=== PATIENT | female | born 1960 | race Caucasian/White ===

== ENCOUNTER → 2016-03-30 | Outpatient (CLI) | payer BC ==
[~2016-03-30] MED LIST: CLON0.5T3 PO; GABA-113 PO; HYDR-3419 PO; MULT-506 PO; POLYSOL OPB; TOPI25TA55 PO
--- NOTE | 2016-03-30 09:41 | DIAGNOSTIC IMAGING REPORT ---
CT OF THE SINUSES WITHOUT CONTRAST FUSION PROTOCOL CLINICAL HISTORY: Chronic sinusitis. Headache. Facial pain. COMPARISON STUDY: MRI of the brain February 03, 2016. TECHNIQUE: Axial images of the sinuses were obtained without IV contrast according to Fusion protocol. Sagittal and coronal reconstructions were viewed. FINDINGS: Visualized portions of the intracranial contents are unremarkable on this unenhanced examination. Orbits are unremarkable. Mastoid air cells are clear. There is no fluid within the middle ears. The ossicles are intact. Postsurgical findings are noted within the maxillary and ethmoid sinuses. There is leftward deviation of the nasal septum. There is a cortical bullosa of the right middle turbinate. Cribriform plate is intact. Near complete opacification of the left maxillary sinus is similar to MRI of February 03, 2016. There has been interval development of a moderate-sized air-fluid level which contains bubbly secretions within the right maxillary sinus since prior MRI. Moderate mucosal thickening of the ethmoid sinuses is noted with mild mucosal thickening of the frontal and sphenoid sinuses. The right frontoethmoidal recess is occluded by mucosal thickening. The sphenoethmoidal sinuses are patent. The drainage pathway for the right maxillary sinus is narrowed but patent. No bony destruction is present. No mass is identified within the nasal cavity or the sinuses. IMPRESSION: 1. Interval development of a right maxillary sinus air-fluid level since MRI of February 03, 2016. The appearance raises the possibility of acute sinusitis. 2. No change in near complete opacification of the left maxillary sinus since prior MRI. Moderate mucosal thickening of the ethmoid sinuses. 3. Postsurgical findings within the ethmoid and maxillary sinuses. 4. Hanna bullosa of the right middle turbinate. Electronically signed by: Aydin Jarrett M.D. 03/30/2016 9:40 AM Dictated Date/Time: 03/30/2016 9:30 AM
== END | disposition home or self-care (01) ==
LOC: C.CTS 09:09
PROVIDERS: ATTEND Hospitalist
DX: J32.9 Chronic sinusitis, unspecified (principal); R51 Headache

== ENCOUNTER → 2016-04-27 | Outpatient (CLI) | payer BC ==
[2016-04-30 18:19] LABS: ALBUMIN 4.4 G/DL (3.8-4.8); GAMMA GLOBULIN 1.4 G/DL (0.8-1.7); TOTAL PROTEIN 7.5 G/DL (6.2-8.3)
== END | disposition home or self-care (01) ==
LOC: C.LAB1850 09:13
PROVIDERS: ATTEND Internal Medicine Rheumatology
DX: R76.8 Other specified abnormal immunological findings in serum (principal)

== ENCOUNTER → 2016-07-29 | Outpatient (CLI) | payer BC | END | disposition home or self-care (01) | LOC: C.LABSPEC 14:50 | PROVIDERS: ATTEND Family Medicine | DX: R30.0 Dysuria (principal) ==

== ENCOUNTER → 2016-11-24 | Outpatient (CLI) | payer BC ==
--- NOTE | 2016-11-24 14:42 | DIAGNOSTIC IMAGING REPORT ---
KUB CLINICAL HISTORY: Nephrolithiasis. COMPARISON STUDY: CT of the abdomen and pelvis December 25, 2015 and KUB February 05, 2016. FINDINGS: Bowel gas pattern is normal. There is a moderate to large amount of stool within the colon and rectum. No urinary calculi are identified although renal calculi could be obscured by stool. IMPRESSION: No urinary calculi identified although calculi could be obscured by stool on this exam. Electronically signed by: Aydin Jarrett M.D. 11/24/2016 2:41 PM Dictated Date/Time: 11/24/2016 2:39 PM
== END | disposition home or self-care (01) ==
LOC: C.RAD 13:07
PROVIDERS: ATTEND Urology
DX: N20.0 Calculus of kidney (principal)

== ENCOUNTER → 2016-12-29 | Outpatient (CLI) | payer BC ==
--- NOTE | 2016-12-30 07:52 | MAMMOGRAPHY REPORT ---
BILATERAL DIGITAL DIAGNOSTIC MAMMOGRAM TOMOSYNTHESIS WITH CAD: 12/29/2016 CLINICAL HISTORY: 56-year-old woman presents for close follow-up of left breast microcalcifications, and also due for bilateral screening mammography. TECHNIQUE: Breast tomosynthesis in addition to standard 2D mammography was performed. Current study was also evaluated with a Computer Aided Detection (CAD) system. COMPARISON: Comparison is made to exams dated: 08/06/2015 mammogram, 12/16/2014 mammogram, 11/28/2014 mammogram, 10/17/2013 mammogram, 09/08/2012 mammogram, and 08/31/2011 mammogram - [facility]. BREAST COMPOSITION: The tissue of both breasts is heterogeneously dense, which may obscure small mas ses. FINDINGS: The glandular pattern is similar to prior mammograms. Again noted are groupings of microca lcifications in the left breast for which additional spot magnification views were obtained. Again s een are 2 small subcentimeter groupings of punctate micro-calcifications, which are similar in number and distribution comparing to prior spot magnification views dating back to 12/16/2014. With 2 year s of stability the microcalcifications are most likely benign, but another 12 month follow-up left di agnostic mammogram including spot magnification views is recommended to ensure longer stability. No new microcalcifications are seen bilaterally. No obvious new mass, asymmetry or areas of distortion. IMPRESSION: ACR-BI-RADS CATEGORY 3: PROBABLY BENIGN Stable bilateral mammograms including the benign-appearing subcentimeter groupings of punctate macroc alcifications in the left breast. Another 12 month follow-up bilateral diagnostic mammograms includi ng left spot magnification views is recommended to ensure longer stability. These results and recommendations were discussed with the patient at the time of the exam. She tenta tively scheduled a follow-up appointment prior to leaving our department. Approximately 10% of breast cancers are not detected with mammography. A negative mammographic report should not delay biopsy if a clinically suggestive mass is present. Mellisa Mathews M.D. ay/:12/29/2016 13:46:37 [employer] Specialist: César DIAS)(Stephanie), [facility] letter sent: Follow Up Recommended 3 BI-RADS Code: ACR-BI-RADS Category 3: Probably Benign
== END | disposition home or self-care (01) ==
LOC: C.MAMM 12:57
PROVIDERS: ATTEND Family Medicine
DX: R92.0 Mammographic microcalcification found on diagnostic imaging of breast (principal)